=== PATIENT | female | born 1945 | race Caucasian/White ===

== ENCOUNTER 2024-03-02 14:50 | Emergency (ER) | payer MEDICARE, BC, SELFPAY ==
[2024-03-02 14:58] VITALS: BP 121/42; PULSE 55; RESP 16; TEMP 37; O2SAT 100; BMI 20.5
--- NOTE | 2024-03-02 15:45 | ED.GENADULT ---
HPI - General Adult General Time Seen by Provider: 15:45 Date Seen: 03/02/24 Chief complaint: Unspecified Complaint, Adult Stated complaint: abnormal EKG from clinic Time Seen by Provider: 03/02/24 15:12 Source: patient, RN notes reviewed and old records reviewed Mode of arrival: ambulatory Limitations: no limitations History of Present Illness HPI narrative: 79-year-old female who comes in today with 3 weeks of fatigue. Initially presented to the clinic and was felt to have an abnormal EKG, sent to the emergency department for further evaluation. Patient notes lightheadedness when she stands up which is been going on intermittently for the last 3 weeks or so. It is worse in the afternoon, better in the morning. Bone COVID briefly review shows food or palpitations. No nausea, vomiting, diarrhea. Denies the room spinning dizziness but says she feels a little off balance when she is dizzy. Related Data Home Medications ?Medication ?Instructions ?Recorded ?Confirmed hydrochlorothiazide 25 mg tablet 25 mg PO DAILY 03/02/24 03/02/24 latanoprost 0.005 % eye drops 1 drp ophthalmic (eye) QPM 03/02/24 03/02/24 levothyroxine 75 mcg tablet 75 mcg PO QAM 03/02/24 03/02/24 lisinopril 40 mg tablet 40 mg PO DAILY 03/02/24 03/02/24 pramipexole 0.125 mg tablet 0.25 mg PO QPM PRN cramps 03/02/24 03/02/24 rosuvastatin 20 mg tablet 20 mg PO QPM 03/02/24 03/02/24 Allergies Allergy/AdvReac Type Severity Reaction Status Date / Time Sulfa (Sulfonamide Allergy Intermediate Hives Verified 03/02/24 15:04 Antibiotics) [facility] Social History Non-prescribed substance use: denies use Exam Narrative: Exam Narrative: General: Well-developed and well-nourished, no acute distress Head: Atraumatic and normocephalic Eyes: Pupils are equal reactive, extraocular motions intact, conjunctiva clear ENT: External nose and ears are normal, posterior pharynx without erythema or exudate Neck: No midline cervical tenderness, full spontaneous range of motion the neck, trachea midline, no adenopathy Heart: Regular rate and rhythm no murmurs or thrills, occasional extrasystole Lungs: Clear to auscultation bilaterally without wheezes or crackles Abdomen: Soft, nontender, nondistended with active bowel sounds Musculoskeletal: No tenderness, deformity, or edema Neurologic: Awake, alert, and oriented x3, no gross focal neurologic deficits, cranial nerves intact as tested Psych: Mood and affect are appropriate Skin: No rashes Const: Vital Signs, click to edit/add: Vital Signs - 24 hr 03/02/24 14:58 Temperature 98.6 F Pulse Rate [Pulse Oximeter] 55 L Respiratory Rate 16 Blood Pressure [Ri t Upper Arm] 121/42 L Pulse Oximetry 100 Oxygen Delivery Me thod Room Air Course Course ED Course: Patient seen and examined, prior records are reviewed. Patient reports intermittent lightheadedness with standing for the last 3 weeks. Denies chest pain or palpitations with this. On exam here, borderline bradycardia with occasional extrasystoles, lungs are clear, no focal neurologic deficits. Review of medications shows patient is on lisinopril 40 mg daily as well as hydrochlorothiazide 25 mg daily. Labs ordered to evaluate for acute kidney injury or electrolyte disturbance. If this is normal, plan to decrease hydrochlorothiazide and discharge with outpatient follow-up. I independently reviewed EKGs done at the clinic today at 1:26 a.m. p.m.. There 2 EKGs, both of which show normal sinus rhythm with artifact, there is question of a 1 PVC on the EKG done at 13:26:39. EKG in the emergency department independently interpreted by me with normal sinus rhythm rate 56, no acute ST elevations or depressions, 1 PVC is present, normal intervals otherwise, normal axis, QTC 459, IL 154. Reevaluation(s) Time of Reevaluation #1: 17:30 Reevaluation #1: Labs ordered and independently interpreted by me with slightly low potassium at 3.3, normal troponin, normal magnesium. Urinalysis with trace hematuria but no other acute findings. Patient is stable for discharge with outpatient follow-up. Will decrease hydrochlorothiazide due to orthostatic symptoms as well as hypokalemia. Vital Signs Vital signs: Initial Vital Signs Temperature 98.6 F 03/02/24 14:58 Temperature Source Temporal Artery Scan 03/02/24 14:58 Pulse Rate 55 L 03/02/24 14:58 Pulse Rhythm Regular 03/02/24 14:58 Pulse Strength 3+ Normal 03/02/24 14:58 Respiratory Rate 16 03/02/24 14:58 Blood Pressure 121/42 L 03/02/24 14:58 Blood Pressure Mean 68 L 03/02/24 14:58 Blood Pressure Position Sitting 03/02/24 14:58 Pulse Oximetry 100 03/02/24 14:58 Oxygen Delivery Method Room Air 03/02/24 14:58 Vital Signs Temperature 98.6 F 03/02/24 14:58 Pulse Rate 55 L 03/02/24 14:58 Respiratory Rate 16 03/02/24 14:58 Blood Pressure 121/42 L 03/02/24 14:58 Pulse Oximetry 100 03/02/24 14:58 Oxygen Delivery Method Room Air 03/02/24 14:58 Temperature 98.6 F 03/02/24 14:58 Pulse Rate 55 L 03/02/24 14:58 Respiratory Rate 16 03/02/24 14:58 Blood Pressure 121/42 L 03/02/24 14:58 Pulse Oximetry 100 03/02/24 14:58 Oxygen Delivery Method Room Air 03/02/24 14:58 Medical Decision Making Lab Data Labs: Lab Results 03/02/24 03/02/24 Range/Units 16:06 16:45 Sodium 137 (135-149) mmol/L Potassium 3.3 L (3.6-5.1) mmol/L Chloride 100 (96-114) mmol/L Carbon Dioxide 28 (20-32) mmol/L Anion Gap 9 (7-15) mEq/L BUN 27 (7-30) mg/dL Creatinine 0.7 (0.5-1.5) mg/dL Estimated Creat Clear 31.69 Estimated GFR 87 ml/min Glucose 124 H (60-115) mg/dL Calcium 10.2 (8.4-10.6) mg/dL Magnesium 2.3 (1.5-2.6) mg/dL Urine Color Yellow (Yellow) Urine Appearance Clear (Clear) Urine pH 7.0 (5.0-8.5) Ur Specific [place] 1.010 (1.000-1.030) Urine Protein Negative (Negative) Urine Glucose (UA) Negative (Negative) Urine Ketones Negative (Negative) Urine Blood 2+ A (Negative) Urine Nitrite Negative (Negative) Urine Bilirubin Negative (Negative) Urine Urobilinogen 0.2 (0.2-1.0) Ur Leukocyte Esterase 1+ A (Negative) Urine RBC 2-5 A (0-2) Urine WBC 2-5 (0-5) Ur Squamous Epith Cells Few (None-Few) Urine Bacteria Few A (None) POC Troponin I 0.01 (0.01-0.04) ng/ml Discharge Plan Discharge Clinical Impression: Orthostatic lightheadedness, Hypokalemia Patient Disposition: Home w/ Parent or Adult Condition: Stable Instructions: Lightheadedness (ED) Additional Instructions: Decrease hydrochlorothiazide to 12.5 mg (1/2 tablet) daily Follow-up with your primary care provider in 1 week Activity Level: Activity as Tolerated Discharge Diet: Regular Prescriptions: No Action latanoprost 0.005 % drops 1 drp ophthalmic (eye) QPM levothyroxine 75 mcg tablet 75 mcg PO QAM pramipexole 0.125 mg tablet 0.25 mg PO QPM PRN (Reason: cramps) hydrochlorothiazide 25 mg tablet 25 mg PO DAILY lisinopril 40 mg tablet 40 mg PO DAILY rosuvastatin 20 mg tablet 20 mg PO QPM Follow Up/Referrals: Dorothy Arevalo PA-C [Primary Care Provider] - Stand Alone Forms: [employer] Info Instructions
[2024-03-02 17:01] LABS: Troponin, Point-of-Care* 0.01 ng/ml (0.01-0.04)
[2024-03-02 17:03] LABS: Appearance Urine Clear (Clear); Bilirubin Urine Negative (Negative); Blood Urine 2+ (Negative); Color Urine Yellow (Yellow); Glucose Urine Negative (Negative); Ketones Urine Negative (Negative); Leukocyte Esterase Urine 1+ (Negative); Nitrite Urine Negative (Negative); Protein Urine Negative (Negative); Urobilinogen Urine 0.2 (0.2-1.0)
[2024-03-02 17:11] LABS: Bacteria Urine Few; Squamous Epithelial Cell Urine Few (None-Few)
[2024-03-02 17:21] LABS: Chloride* 100 mmol/L (96-114); Potassium* 3.3 mmol/L (3.6-5.1); Sodium* 137 mmol/L (135-149)
[2024-03-02 17:24] LABS: Anion Gap 9 mEq/L (7-15); Blood Urea Nitrogen* 27 mg/dL (7-30); Carbon Dioxide* 28 mmol/L (20-32); Creatinine* 0.7 mg/dL (0.5-1.5); Est. Creatinine Clearance* 31.69; Estimated Glomerular Filt Rate 87 ml/min; Glucose* 124 mg/dL (60-115)
[2024-03-02 17:25] LABS: Calcium* 10.2 mg/dL (8.4-10.6); Magnesium* 2.3 mg/dL (1.5-2.6)
== END 2024-03-02 18:18 | disposition home or self-care (01) ==
PROVIDERS: Emergency Provider Family Medicine; PCP Physician Assistant
DX: E87.6 Hypokalemia (principal); I95.1 Orthostatic hypotension
CPT/HCPCS: 36415; 80048; 81001; 83735; 84484; 87086; 99283; 99284

== ENCOUNTER 2024-09-28 06:36 | Day surgery (SDC) | payer MEDICARE, BC, SELFPAY ==
[2024-09-28] VITALS (26 sets, daily range): BP systolic 104–181; BP diastolic 37–67; PULSE 43–62; RESP 14–18; TEMP 35.6–36.8; O2SAT 94–100; BMI 21.5
--- OUTSIDE RECORDS SUMMARY | 2024-09-28 06:40 | XMS_ITS | Clinical Summary ---
Author Organization [facility] Address [place], [place] [address] Care Team Providers Care Wind Energy Engineer Name Role Phone Hilda Begum Unavailable [phone] Shayna Rosales Primary Care Provider Allergies Active Allergy Reactions Criticality Noted Date Comments Sulfa (Sulfonamide Antibiotics) Hives 03/26 Medications XALATAN 0.005 % EYE DROPS instill 1 drop into both eye(s) by ophthalmic route once daily in the evening 0 007 Active LORATADINE 10 MG TAB take 1 tablet (10 mg) by oral route once daily prn 0 007 Active ZINC 50 MG TAB twice weekly 0 007 Active calcium carbonate-vit D3, 600 mg-400 units, (CALTRATE-600 PLUS VITAMIN D3) tablet Take 1 tablet by mouth 2 times daily. 0 012 Active rosuvastatin (CRESTOR) 20 mg tabletIndications :Mixed hyperlipidemia Take 1 Tablet (20 mg) by mouth at bedtime. 90 Tablet 3 024 Active hydroCHLOROthiazi de 12.5 mg tabletIndications :Hypertension, unspecified type Take 1 Tablet (12.5 mg) by mouth once daily. 90 Tablet 3 024 Active levothyroxine (SYNTHROID) 75 mcg tabletIndications :Hypothyroidism, unspecified type TAKE ONE TABLET BY MOUTH ONE TIME DAILY BEFORE BREAKFAST 90 Tablet 025 Active lisinopriL (PRINIVIL; ZESTRIL) 40 mg tabletIndications :Hypertension, unspecified type TAKE ONE TABLET BY MOUTH ONE TIME DAILY 90 Tablet 1 025 Active pramipexole (MIRAPEX) 0.125 mg tabletIndications :Mixed hyperlipidemia TAKE TWO TABLET BY MOUTH DAILY AT BEDTIME NEEDED for leg cramps. 180 Tablet 025 Active pramipexole (MIRAPEX) 0.125 mg tabletIndications :Mixed hyperlipidemia Take 2 Tablets (0.25 mg) by mouth at bedtime if needed (leg cramps). 180 Tablet 3 024 2024 Discontinued lisinopriL (PRINIVIL; ZESTRIL) 40 mg tabletIndications :Hypertension, unspecified type Take 1 Tablet (40 mg) by mouth once daily. 90 Tablet 3 024 2024 Discontinued levothyroxine (SYNTHROID) 75 mcg tabletIndications :Hypothyroidism, unspecified type TAKE ONE TABLET BY MOUTH ONE TIME DAILY BEFORE BREAKFAST 90 Tablet 2 024 2024 Discontinued pramipexole (MIRAPEX) 0.125 mg tabletIndications :Mixed hyperlipidemia TAKE TWO TABLET BY MOUTH DAILY AT BEDTIME NEEDED for leg cramps. 180 Tablet 025 2024 Discontinued(R eorder (E-cancel not sent)) Active Problems Problem Noted Date Diagnosed Date Controlled type 2 diabetes m ellitus without complication, without long-term current use of insulin 08/16/2019 History of colon polyps 09/26/2015 Overview (09/26/2015): Colonoscopy 09/2015 diverticulosis repeat in 5 years ACP (advance care planning) 07/22/2014 Overview (07/22/2014): Has completed and daughter has information Alyson Fuchs M.D. 07/22/2014 8:27 AM Spongiotic dermatitis 02/07/2014 Restless leg syndrome 06/29/2013 Atrophic vaginitis 06/29/2013 Hiatal hernia 05/23/2011 Bradycardia 07/27/2008 Sensorineural hearing loss, bilateral 06/17/2007 Anxiety state, unspecified 04/15/2007 Unspecified hypothyroidism 04/15/2007 Unspecified essential hypertension 04/15/2007 Disorder of bone and cartilage, unspecified 03/26 Overview (07/22/2014): Stable in 2010. Completed fosamax. Consider repeat dexa 2014. Alyson Fuchs M.D. 07/22/2014 8:29 AM Mixed hyperlipidemia 04/15/2007 Hematuria 04/15/2007 Overview (04/15/2007): no etiology found on urologic workup in 2005 Resolved Problems Problem Noted Date Diagnosed Date Resolved Date Impaired fasting glucose 04/15/200704/2024 Encounters Date Type Department Care Team Description 09/20/2024 9:50 AM SEWING LINE BALER Office Visit [facility] [address] [place] [address] Shayna Rosales PA Preoperative Exam (R hip); Ear Problem (Having a hard time hearing) 09/20/2024 Travel 09/09/[address] [address] Shayna Rosales PA Refill Request (Levothyroxine, Lisinopril, Pramipexole) 08/30/[address] [address] Shayna Rosales PA Follow Up 08/27/[address] [address] Shayna Rosales PA Results 08/27/[address] [address] Shayna Rosales PA Referral (Hip replacement. ) 08/24/2024 10:15 AM SEWING LINE BALER Ancillary Procedure [address] [address] 08/24/2024 9:30 AM SEWING LINE BALER Office Visit [facility] [address] [place] [address] Shayna Rosales PA Preoperative Exam (R hip replacement); URI (Cough and chills since xmas shiloh.) 08/24/2024 Travel from Last 3 Months Immunizations Name Administration Dates Next Due COVID-19 vaccine ([employer] 30mcg/0.3mL) P F, MDV 11/07/2020,10/17/2020 Influenza RIV4 (Age 18+ Years) PRESERV FREE 12/2019,05/31/2019 Influenza Virus, Unspecified 06/08/2018 Influenza, High-dose Inactivated 05/29/2017,04/27 Influenza, High-dose Quadrivalent Inactivated ,05/30/2021 Influenza, IIV3 (Age >=3 years) 05/29/2013,04/25 Influenza, IIV4 05/26/2017 Pneumococcal Poly,23-Valent (Pneumovax) 05/22/20 11 Pneumococcal conj 13-Valent (Prevnar 13) 015 Tdap 02/05/2019,04/11/2006 Zoster (Shingrix-RZV, recombinant) 06/23/2023, Zoster (Zostavax-ZVL, live) 07/22/2012, 2 Family History Medical History Relation Name Comments Diabetes Father Other Father emphysema, smok er Other Mother suddenly, smoker Osteoporosis Sister 2 Other Son 2 colitis Cancer-breast No Family History Relation Name Status Comments Daughter 1 Alive Daughter 2 Alive Father (Age 60) COPD Mother (Age 51) AAA Sister 1 Alive Sister 2 Son 1 Alive Son 2 Social History Tobacco Use Types Packs/Day Years Used Date Smoking Tobacco: Never Smokeless Tobacco: Never Tobacco Cessation:Counseling Given: Yes Alcohol Use Standard Drinks/Week Comments Not Currently 0 (1 standard drink = 0.6 oz pur e alcohol) PHQ-2 Answer Date Recorded PHQ-2 TOTAL SCORE 0 10/03/2023 Social Connections Answer Date Recorded Do you often feel lonely or isolated from those around you? 0 10/03/2023 Financial Resource Strain Answer Date R ecorded Difficulty of Paying Living Expenses 3 10/03/2023 Difficulty of Paying Living Expenses Not on file 10/03/2023 Food Insecurity Answer Date Recorded Do you worry your food will run out before you are able to buy more? 1 10/03/2023 Transportation Needs Answer Date Record ed Does lack of transportation keep you from medica l appointments? 1 10/03/2023 Does lack of transportation keep you from work, meetings or getting things that you need? 1 10/03/2023 Housing Stability Answer Date Recorded What is your housing situation today? 1 10/03/2023 Utilities Answer Date Recorded Do you have trouble paying f or utilities (for example, heat, electricity, water, phone)? 1 10/03/2023 Comments No Sex and Gender Information Value Date Recorded Sex Assigned at Not on file Legal Sex Female 6:10 AM SEWING LINE BALER Gender Identity Not on file Sexual Orientation Not on file Occupation Industry Job Start Date Job End Date Not on file Not on file Not on file Not on file Obstetrics History Para Term AB IAB SAB Ectopic Multiple Livin g Live Births 3 3 Date Outcome GA Total Labor Labor/2nd/3rd Weight Sex Type Anes PTL Loreta A1 A5 Name Clin Para Para Para Last Filed Vital Signs Vital Sign Reading Time Taken Comments Blood Pressure 138/68 09/20/2024 10:41 AM SEWING LINE BALER Pulse 59 09/20/2024 10:07 AM SEWING LINE BALER Temperature 36.9 C (98.5 F) 08/24/2024 9:37 AM SEWING LINE BALER Respiratory Rate - - Oxygen Saturation 98% 09/20/2024 10:07 AM SEWING LINE BALER Inhaled Oxygen Concentration - - Weight 49.9 kg (110 lb) 09/20/2024 10:07 AM SEWING LINE BALER Height 149.9 cm (4' 11) 03/15/2024 2:08 PM CDT Body Mass Index 22.22 03/15/2024 2:08 PM CDT Plan of Treatment Health Maintenance Due Date Last Done Comments RSV vaccine for adults or (1 - 1-dose 75+ series) 2018 Influenza for age 65+ 04/25/2024 07/01/2022 , 05/30/2021, 05/29/2020, Additional history exists Depression screening for age 12+ 10/03/2024 10/03/2023, 09/27/2022, 09/04/2021, Additional history exists Medicare Wellness for age 65+ 10/03/2024, 09/27/2022, 09/03/2021, Additional history exists BMI (ht and wt on same day) for age 18+ 03/15/2025 03/15/2024, 10/03/2023, 09/27/2022, Additional history exists Tetanus booster 02/05/2029 02/05/2019, 04/11/2006 Pneumococcal series for age 50+ Completed 5, 05/22/2011 DEXA/DXA scan for age 65+ Completed 2018, 07/27/2015, 06/01/2010, Additional history exists Tdap Completed 02/05/2019, 04/11/2006 Zoster (shingles) series for age 50+ Completed 06/23/2023, 04/09/2023, 07/22/2012, Additional history exists COVID-19 vaccine series Completed 05/31/20 24, 05/26/2023, 06/07/2022, Additional history exists Procedures Procedure Name Priority Date/Time Associated Diagnosis Comments CBC WITH AUTO DIFFERENTIAL Routine 09/20/2024 10:48 AM SEWING LINE BALER Hypertension, unspecified type BASIC METABOLIC PANEL Routine 09/20/2024 10:48 AM SEWING LINE BALER Hypertension, unspecified type NV READING EKG - NO CHARGE, COMP ONLY Routine 08/26/2024 1:25 PM SEWING LINE BALER Preop general physical exam EKG 12 LEAD Routine 08/26/2024 1:25 PM SEWING LINE BALER Preop general physical exam XR CHEST 2 VIEWS PA AND LATERAL Routine 08/24/2024 10:16 AM SEWING LINE BALER Cough, unspecified type CBC WITH AUTO DIFFERENTIAL Routine 08/24/2024 10:06 AM SEWING LINE BALER Hypertension, unspecified type Controlled type 2 diabetes mellitus without complication, without long-term current use of insulin (HC) BASIC METABOLIC PANEL Routine 08/24/2024 10:06 AM SEWING LINE BALER Hypertension, unspecified type Controlled type 2 diabetes mellitus without complication, without long-term current use of insulin (HC) XR DXA BONE DENSITY 2 SITES AXIAL Routine 08/27/2018 11:16 AM SEWING LINE BALER Menopausal and perimenopausal disorder Osteopenia, unspecified location from Last 3 Months or Most Recently Relevant to Health Maintenance Results * (ABNORMAL) CBC AND DIFFERENTIAL (09/20/2024 10:48 AM SEWING LINE BALER) Only the most recent of2 resultswithin the time period is included. WHITE BLOOD CELL COUNT 9.3 3.8 - 10.8 Thousand/u L [facility] RED BLOOD CELL COUNT 3.30(L) 3.80 - 5.10 Million/uL [facility] HEMOGLOBIN 11.3(L) 11.7 - 15.5 g/dL [facility] HEMATOCRIT 32.9(L) 35.0 - 45.0 % [facility] MCV 99.7 80.0 - 100.0 fL [facility] MCH 34.2(H) 27.0 - 33.0 pg [facility] MCHC 34.3 32.0 - 36.0 g/dL [facility] Comment: For adults, a slight decrease in the calculated MCHC value (in the range of 30 to 32 g/dL) is most likely not clinically significant; however, it should be interpreted with caution in correlation with other red cell parameters and the patient's clinical condition. RDW 12.7 11.0 - 15.0 % [facility] PLATELET COUNT 204 140 - 400 Thousand/u L [facility] MPV 10.5 7.5 - 12.5 fL [facility] ABSOLUTE NEUTROPHILS 6,054 1,500 - 7,800 cells/uL [facility] ABSOLUTE LYMPHOCYTES 2,381 850 - 3,900 cells/uL [facility] ABSOLUTE MONOCYTES 781 200 - 950 cells/uL [facility] ABSOLUTE EOSINOPHILS 56 15 - 500 cells/uL [facility] ABSOLUTE BASOPHILS 28 0 - 200 cells/uL [facility] NEUTROPHILS 65.1 % [facility] LYMPHOCYTES 25.6 % [facility] MONOCYTES 8.4 % [facility] EOSINOPHILS 0.6 % [facility] BASOPHILS 0.3 % [facility] Blood BLOOD SPECIMEN / Unknown 09/20/2024 10:48 AM SEWING LINE BALER 09/20/2024 10:48 AM SEWING LINE BALER Shayna BERKOWITZ HEMATOLOGY Final R esult [facility] [address] [place] [address], [place] [phone] [facility] [address] [place] [address] * BASIC METABOLIC PANEL (09/20/2024 10:48 AM SEWING LINE BALER) Only the most recent of2 resultswithin the time period is included. [facility] GLUCOSE 73 65 - 99 mg/dL [facility] Comment: Fasting reference interval UREA NITROGEN (BUN) 23 7 - 25 mg/dL [facility] CREATININE 0.75 0.60 - 0.95 mg/dL [facility] EGFR 80 > OR = 60 mL/min/1. 73m2 [facility] BUN/CREATININE RATIO SEE NOTE: 6 - 22 (calc) [facility] Comment: Not Reported: BUN and Creatinine are within reference range. SODIUM 139 135 - 146 mmol/L [facility] POTASSIUM 4.0 3.5 - 5.3 mmol/L [facility] CHLORIDE 100 98 - 110 mmol/L [facility] CARBON DIOXIDE 30 20 - 32 mmol/L [facility] ELECTROLYTE BALANCE 9 7 - 17 mmol/L (calc) [facility] CALCIUM 9.9 8.6 - 10.4 mg/dL [facility] Blood BLOOD SPECIMEN / Unknown 09/20/2024 10:48 AM SEWING LINE BALER 09/20/2024 10:48 AM SEWING LINE BALER us Shayna BERKOWITZ CHEMISTRY Final R esult [facility] [address] [place] [address], [place] [phone] [facility] [address] [place] [address] * EKG 12 LEAD (08/26/2024 1:25 PM SEWING LINE BALER) us Shayna BERKOWITZ EKG ORD Edited Result - Final * NV READING EKG - NO CHARGE, COMP ONLY (08/26/2024 1:25 PM SEWING LINE BALER) us Shayna BERKOWITZ PB - PROVIDER READINGS Final Result * XR CHEST 2 VIEWS PA AND LATERAL (08/24/2024 10:16 AM SEWING LINE BALER) Anatomical Region Laterality Modality CHEST, THORAX, Lung, HEART Compu aleida Radiography 08/24/2024 3:05 PM SEWING LINE BALER Impressions 08/24/2024 3:05 PM SEWING LINE BALER No acute findings. Dictated by Alcon Gaston MD @ 08/24/2024 3:05:37 PM (Electronically Signed) Narrative 08/24/2024 3:05 PM SEWING LINE BALER For Patients: As a result of the Cures Act, medical imaging exams and procedure reports are released immediately into your electronic medical record. You may view this report before your referring provider. If you have questions, please contact your health care provider. INDICATION: Cough TECHNIQUE: Chest 2 views COMPARISON: None FINDINGS: Cardiac silhouette is mildly prominent. No infiltrate or edema. No effusion or pneumothorax. No fracture. Procedure Note Alcon Gaston MD - 08/24/2024 For Patients: As a result of the Cures Act, medical imagingexams and procedure reports are released immediately into your electronicmedical record. You may view this report before your referring provider.If you have questions, please contact your health care provider. INDICATION: Cough TECHNIQUE: Chest 2 views COMPARISON: None FINDINGS: Cardiac silhouette is mildly prominent. No infiltrate or edema. Noeffusion or pneumothorax. No fracture. IMPRESSION: No acute findings. Dictated by Alcon Gaston MD @ 08/24/2024 3:05:37 PM (Electronically Signed) us Shayna BERKOWITZ GENERAL IMAGING Final R esult * (ABNORMAL) XR DXA BONE DENSITY 2 SITES AXIAL (08/27/2018 11:16 AM SEWING LINE BALER) Anatomical Region Laterality Modality Spine, HIPS, HIPL, HIPR Other Narrative 09/07/2018 3:36 PM SEWING LINE BALER Please see scanned document for results of this study. us Shayna BERKOWITZ DEXA Final R esult from Last 3 Months or Most Recently Relevant to Health Maintenance Insurance BLUE CROSS UTE BLUE MR PB ONLY Advance Directives Documents on File Type Date Recorded Patient Media Strategist Expl anation Power of News Intern 03/29/1998 [employer]; [employer], 03/29/1998 Healthcare Directive 03/29/1998 [facility], 03/29/1998 Care Teams Wind Energy Engineer Relationship Specialty Start Date End Date Shayna Rosales PA [address] [place] [address] PCP - General Family Practice 04/20/15 Hilda Begum AuD Audiology 05/06/07
[2024-09-28] MEDS: CELECOXIB 200 MG CAPSULE PO (07:15)
[2024-09-28] MEDS: ACETAMINOPHEN 500 MG TABLET 1000 MG PO ×3 (07:15→19:30)
[2024-09-28] MEDS: LACTATED RINGERS 1000 ML 1,000 ML 100 ML IV ×2 (07:15→09:21)
[2024-09-28] MEDS: OXYCODONE (CR) 10 MG TAB.ER.12H PO (07:15)
[2024-09-28] MEDS: SODIUM CHLORIDE 0.9 % (FLUSH) 10 ML SYRINGE IVF (07:42)
[2024-09-28] MEDS: fentaNYL 100 MCG/2 ML inj IVP (08:30)
[2024-09-28] MEDS: MIDAZOLAM HCL 1 MG/ML inj IVP (08:30)
--- NOTE | 2024-09-28 08:39 | P.ANES_ITS ---
Anesthesia Charges Start Date/Time Anesthesia Start Date: 09/28/24 Anesthesia Start Time: 09:21 Stop Date/Time Anesthesia Stop Date: 09/28/24 Anesthesia Stop Time: 11:48 Summary Extremes of Age - Over 70 or under 1: PRINT FINISHING WORKER Coding CPT Codes CPT Codes: ANESTH HIP ARTHROPLASTY - 57707 ([id number]) P2 - PATIENT W/MILD SYST DISEASE, QK - CONVENTIONS RESERVATIONIST 2-4 CNCRNT ANES PROC, QX - PRINT FINISHING WORKER SVC W/ MD MED DIRECTION Additional Codes: Summary - Extremes of Age - Over 70 or under 1: PRINT FINISHING WORKER ([id number])
--- NOTE | 2024-09-28 08:39 | W.ANESCHARGE ---
Anesthesia Charges Start Date/Time Anesthesia Start Date: 09/28/24 Anesthesia Start Time: 09:21 Stop Date/Time Anesthesia Stop Date: 09/28/24 Anesthesia Stop Time: 11:48 Summary Extremes of Age - Over 70 or under 1: STUDENT SERVICES VICE PRESIDENT Coding CPT Codes CPT Codes: ANESTH HIP ARTHROPLASTY - 42167 ([id number]) P2 - PATIENT W/MILD SYST DISEASE, QK - VETERINARY TECHNICIAN 2-4 CNCRNT ANES PROC, QX - STUDENT SERVICES VICE PRESIDENT SVC W/ MD MED DIRECTION Additional Codes: Summary - Extremes of Age - Over 70 or under 1: STUDENT SERVICES VICE PRESIDENT ([id number])
--- NOTE | 2024-09-28 08:45 | SUR.PREOP ---
TIME?OUT:?0830 PT/savanna collado RN/mary keating MDA?VERIFICATION?OF?SURGICAL?SITE,?PROCEDURE,?AND?CONSENT OBTAINED?PRIOR?TO?INVASIVE?PROCEDURE.
--- NOTE | 2024-09-28 09:29 | CRLHL7_ITS ---
For Patients: As a result of the Cures Act, medical imaging exams and procedure reports are released immediately into your electronic medical record. You may view this report before your referring provider. If you have questions, please contact your health care provider. Indication: Hip replacement surgery Technique: AP hip fluoroscopic images. Fluoroscopy time 50 seconds. Findings/Impression: Hardware from a right total hip arthroplasty is in satisfactory position. Dictated by Alcon Gaston MD @ 09/28/2024 11:10:25 AM (Electronically Signed)
[2024-09-28] MEDS: CEFAZOLIN 2 GM INJ IVP (09:30)
[2024-09-28] MEDS: TRANEXAMIC ACID 100 MG/ML INJ 1000 MG IV (09:35)
--- NOTE | 2024-09-28 10:09 | P.NB_ITS ---
Nerve Block Nerve Block Time Seen by Provider: 08:33 Date Seen: 09/28/24 Type of block requested by surgeon for post-operative analgesia: MATEO/LFCN Side: right Time out performed: Yes Verification of patient name: Yes Verification of date of : Yes Site marking: site marked Name of person performing procedure: Juan R Continuous monitoring Was continuous monitoring of O2 sat, B/P, court recording monitor, recorded every 15 minutes?: Yes Procedure Checklist: sterile prep, needles and gloves Ultrasound guided. Images saved: Yes Medications given in 5ml increments after negative aspiration: Ropivicaine %: 0.5 mL: 30 Needle gauge: 20 Precedex (mcg): 25 Patient tolerated procedure well: Yes Additional comments: Needle noted below psoas tendon needle noted adjacent to LFCN Block Charges Block Charge (with Pro Fee): Other Periph Nerve Block Use of Ultrasound Machine for Block: Yes- US Guidance/pain block
--- NOTE | 2024-09-28 10:31 | SUR.OPER ---
PATIENT QUESTIONS ANSWERED SATISFACTORILY PREOPERATIVELY. PATIENT BROUGHT TO OR #2 PER CART AFTER ADMINISTRATION OF A BLOCK. Patient positioned supine on OR #2 bed. The perioperative team supported arms bilaterally on arm boards. Final approval of positioning by surgeon.
--- NOTE | 2024-09-28 10:57 | CRLHL7_ITS ---
For Patients: As a result of the Cures Act, medical imaging exams and procedure reports are released immediately into your electronic medical record. You may view this report before your referring provider. If you have questions, please contact your health care provider. Indication: Postop DOUG Technique: AP pelvis and lateral view right hip Findings/Impression: Hardware from a right total hip arthroplasty is in satisfactory position. Bone alignment is normal. No sign of acute fracture. Postop changes are within normal limits. Dictated by Alcon Gaston MD @ 09/28/2024 12:53:29 PM (Electronically Signed)
--- NOTE | 2024-09-28 11:01 | PM.ORPRC ---
Procedure Note Date of procedure: 09/28/24 Procedure: PREOPERATIVE DIAGNOSIS: Right hip osteoarthritis POSTOPERATIVE DIAGNOSIS: Right hip osteoarthritis NAME OF OPERATION: Right total hip arthroplasty SURGEON: Mariano Mahajan MD DEPOSIT REFUND CLERK: Tesha Chong PA-C, KANDICE Luther IMPLANTS: 1. [employer] [place] # 48 sector ingrowth cup 2. 32 x 48 +4 neutral polyethylene 3. Actis #4 standard collared ingrowth stem 4. 32 + 1 cobalt chrome femoral head ANESTHESIA: Spinal ESTIMATED BLOOD LOSS: 450 cc COMPLICATIONS: None SPECIMENS: None DRAINS: None PREOPERATIVE ANTIBIOTICS: Ancef 1 g INDICATIONS: The patient is a 79-year-old with a longstanding history of severe, unrelenting right hip pain secondary to end-stage right hip osteoarthritis. Despite appropriate nonoperative management, including activity modification, use of an assist device, anti-inflammatories, [id number] pain medication, physical therapy and injections, they continue to have pain and disability. Operative intervention was offered. The risks, benefits and expected outcomes were discussed in detail. These included but were not limited to: Infection, bleeding, injury to blood vessel or nerve, venous thromboembolism. All questions were answered to their satisfaction. Use of an assistant portfolio manager was necessary throughout the case for patient positioning and safety, soft tissue retraction and closure. PROCEDURE: The patient was placed supine on the [place] table. General anesthesia was administered. The assistant portfolio manager made sure the patient was properly positioned. The right hip was prepped and draped in the usual sterile fashion. The image intensifier was brought in for a perfect AP pelvis and a perfect double tear drop AP view of each hip which were used for intraoperative templating with our fluoroscopic guide. An oblique incision was made 3 cm distal and 3 cm lateral to the anterior superior iliac spine. The assistant portfolio manager retracted the soft tissues to protect them. Subcutaneous dissection was taken with electrocautery to the superficial fascia. The fascia was divided in line with the incision. Blunt dissection was carried medially to the tensor fascia veronica and sartorius interval. Deep dissection was carried with electrocautery. The circumflex vessels were cauterized and divided. The capsule was exposed and then divided in a T-fashion, tagged with #1 Ethibond sutures. Retractors were placed in the joint, held by the assistant portfolio manager. The corkscrew was placed in the femoral head. The neck cut was made in the subcapital region. We made a second neck cut more distal. The napkin ring of bone was removed. The femoral head was removed intact. Acetabular retractors were placed, held by the assistant portfolio manager. The labrum was sharply debrided. The capsule was released. The 43 mm reamer was used to the true medial wall. We then enlarged in 2 mm increments using the image intensifier for our reamer placement. We impacted the cup which had excellent purchase. We placed the polyethylene. Attention was then turned to the proximal femur. The limb was placed in 140 degrees of external rotation, maximum extension and adduction. A significant amount of time was spent releasing the capsule to allow us to deliver the femur into the wound and complete the femoral side safely. Retractors were held by the assistant portfolio manager throughout the femoral preparation. The box sorter and canal finder were used. Broaches were used to a stable size. The calcar reamer was used. Femoral bone quality was excellent. Therefore, we elected to go with an uncemented stem. Trial components were placed. The hip was reduced and was found to be stable with appropriate soft tissue tension. Length and offset had been nicely restored using the image intensifier and our fluoroscopic guide. Trial components were removed. The stem was impacted. We placed the femoral head. Again, the hip was reduced and was found to be stable with appropriate soft tissue tension. Length and offset had been nicely restored. The assistant portfolio manager did a three minute dilute Betadine solution soak. The assistant portfolio manager irrigated the wound with 3 liters of normal saline via pulse lavage. The assistant portfolio manager repaired the anterior capsule with a #1 Vicryl and our previously placed Ethibond sutures. The assistant portfolio manager closed the fascia over the tensor fascia veronica with a #1 PDO Stratafix, subcutaneous tissues with 2-0 Vicryl, skin with a running 3-0 Stratafix and glue. A dry dressing was applied by the assistant portfolio manager. Sponge and needle counts were correct x 2. The patient tolerated the procedure well; there were no apparent complications. They were awakened and extubated in the operating room, sent to the Post-Anesthesia Care Unit in satisfactory condition. PLAN: 1. The patient will be mobilized with physical therapy, weight-bearing as tolerates 2. Xarelto x 5 days then aspirin x 30 days will be used for DVT prophylaxis 3. The patient will be discharged once medically appropriate
--- NOTE | 2024-09-28 11:29 | P.ANES_ITS ---
Anesthesia Charges Start Date/Time Anesthesia Start Date: 09/28/24 Anesthesia Start Time: 09:21 Stop Date/Time Anesthesia Stop Date: 09/28/24 Anesthesia Stop Time: 11:48 Summary Extremes of Age - Over 70 or under 1: MDA Coding CPT Codes CPT Codes: ANESTH HIP ARTHROPLASTY - 11222 ([id number]) P2 - PATIENT W/MILD SYST DISEASE, QK - CHAIN TENDER 2-4 CNCRNT ANES PROC, QX - ANSWERER SVC W/ MD MED DIRECTION Additional Codes: Summary - Extremes of Age - Over 70 or under 1: MDA ([id number])
--- NOTE | 2024-09-28 11:29 | W.ANESCHARGE ---
Anesthesia Charges Start Date/Time Anesthesia Start Date: 09/28/24 Anesthesia Start Time: 09:21 Stop Date/Time Anesthesia Stop Date: 09/28/24 Anesthesia Stop Time: 11:48 Summary Extremes of Age - Over 70 or under 1: MDA Coding CPT Codes CPT Codes: ANESTH HIP ARTHROPLASTY - 94281 ([id number]) P2 - PATIENT W/MILD SYST DISEASE, QK - WORD PROCESSOR 2-4 CNCRNT ANES PROC, QX - ER MEDICAL TECHNICIAN SVC W/ MD MED DIRECTION Additional Codes: Summary - Extremes of Age - Over 70 or under 1: MDA ([id number])
[2024-09-28] MEDS: LACTATED RINGERS 1000 ML 1,000 ML 75 ML IV (13:10)
--- NOTE | 2024-09-28 15:34 | P.IMCN_ITS ---
Date of Consult Patient: Luiz Patient Consult date: 09/28/24 Requesting Physician: Orthopedics Primary Care Provider: Shayna Rosales PA-C Consult Narrative Reason for consult: HTN Narrative: Tabitha Beavers is a 79 year old female with a history of diet-controlled type 2 diabetes mellitus, hypertension, hyperlipidemia, and hypothyroidism who underwent elective right total hip arthroplasty by Dr. Mahajan today for severe osteoarthritis. She is doing well postoperatively and denies any dizziness or lightheadedness, chest pain or shortness of breath. Review of Systems Status of ROS: Reports: 6 or more systems reviewed and unremarkable except as noted in History and below [facility] Medical History (Updated 09/28/24 @ 17:51 by Wendy Sandoval MD) Hematuria ?R31.9 - Hematuria, unspecified (ICD-10) Spongiotic dermatitis (02/07/14) ?L30.8 - Other specified dermatitis (ICD-10) Sensorineural hearing loss, bilateral (06/17/07) ?H90.3 - Sensorineural hearing loss, bilateral (ICD-10) Atrophic vaginitis (06/29/13) ?N95.2 - Postmenopausal atrophic vaginitis (ICD-10) Unspecified essential hypertension ?I10 - Essential (primary) hypertension (ICD-10) Bradycardia ?R00.1 - Bradycardia, unspecified (ICD-10) Hypothyroidism ?E03.9 - Hypothyroidism, unspecified (ICD-10) Mixed hyperlipidemia ?E78.2 - Mixed hyperlipidemia (ICD-10) Type 2 diabetes mellitus ?E11.9 - Type 2 diabetes mellitus without complications (ICD-10) Colon polyps ?K63.5 - Polyp of colon (ICD-10) Hiatal hernia ?K44.9 - Diaphragmatic hernia without obstruction or gangrene (ICD-10) Anxiety ?F41.9 - Anxiety disorder, unspecified (ICD-10) Restless legs syndrome (RLS) ?G25.81 - Restless legs syndrome (ICD-10) Surgical History (Updated 09/28/24 @ 17:48 by Wendy Sandoval MD) S/P total right hip arthroplasty ?Z96.641 - Presence of right artificial hip joint (ICD-10) History of rectal surgery ?Z98.890 - Other specified postprocedural states (ICD-10) History of tubal ligation ?Z98.51 - Tubal ligation status (ICD-10) Social History (Updated 09/28/24 @ 15:41 by Wendy Sandoval MD) Narrative: . Lives independently. Denies tobacco, alcohol use. What is your current living situation?: I presently have a place to live In the past 12 months, utilities in danger of being shut off: no In past 12 months, lack of transportation kept you from medical appts, meetings, work, or getting things needed for daily living: no In the past 12 mos, have been you worried that your food would run out before you had money to buy more?: never true In the past 12 mos, the food you bought just didn't last and you didn't have money to buy more?: never true Smoking Status: Never smoker Do you use any of these nicotine containing products: None How often do you have a drink containing alcohol: monthly or less AUDIT-C Alcohol total score: 1 Non-prescribed substance use: denies use Caffeine: Yes How often does anyone, including family, friends and others, physically hurt you : never How often does anyone, including family, friends and others, insult or talk down to you: never How often does anyone, including family, friends and others, threaten you with harm: never How often does anyone, including family, friends and others, scream or curse at you: never Meds Home Medications and Allergies Home Medications ?Medication ?Instructions ?Recorded ?Confirmed ?Type hydrochlorothiazide 25 mg tablet 12.5 mg PO DAILY 03/02/24 09/28/24 History latanoprost 0.005 % eye drops 1 drp ophthalmic (eye) QPM 03/02/24 09/28/24 History levothyroxine 75 mcg tablet 75 mcg PO QAM 03/02/24 09/28/24 History lisinopril 40 mg tablet 40 mg PO DAILY 03/02/24 09/28/24 History pramipexole 0.125 mg tablet 0.25 mg PO QPM PRN cramps 03/02/24 09/28/24 History rosuvastatin 20 mg tablet 20 mg PO QPM 03/02/24 09/28/24 History Allergies Allergy/AdvReac Type Severity Reaction Status Date / Time Sulfa (Sulfonamide Allergy Intermediate Hives Verified 09/28/24 07:26 Antibiotics) Exam Narrative: Exam Narrative: General: No acute distress. Awake alert oriented x3. HEENT: Normocephalic atraumatic, pupils equally round and reactive to light and accommodation. Oropharynx clear. Mucous membranes are moist. No cervical lymphadenopathy, thyromegaly or carotid bruits. No JVD. Cardiovascular: Regular rate and rhythm. No murmurs, gallops, or rubs. Chest: No increased work of breathing. Clear to auscultation bilaterally. No crackles or wheezes. Abdomen: Bowel sounds present. Soft, nondistended, nontender. No hepatosplenomegaly or masses. Extremities: Right hip bandage is clean, dry, and intact. No edema, no cyanosis or clubbing. Skin: No jaundice, no pallor, no rashes on visible skin. Const: Vital Signs, click to edit/add: Vital Signs - 24 hr 09/28/24 07:32 09/28/24 08:30 09/28/24 08:35 Temperature 98 F Pulse Rate 60 53 L 43 L Respiratory Rate 16 16 16 Blood Pressure 181/67 H 151/51 H 135/51 L Pulse Oximetry 94 100 100 Oxygen Delivery Me thod Room Air Nasal Cannula Nasal Cannula Oxygen Flow Rate 3 3 09/28/24 11:43 09/28/24 11:50 09/28/24 11:55 Temperature 97.2 F L Pulse Rate 58 L 55 L 52 L Respiratory Rate 16 14 14 Blood Pressure 116/55 L 121/57 L 132/56 L Pulse Oximetry 96 95 96 Oxygen Delivery Me thod Room Air Room Air Room Air Oxygen Flow Rate 09/28/24 12:00 09/28/24 12:05 09/28/24 12:10 Temperature 97.3 F L Pulse Rate 53 L 56 L 53 L Respiratory Rate 18 16 14 Blood Pressure 130/54 L 116/51 L 128/55 L Pulse Oximetry 97 95 97 Oxygen Delivery Me thod Room Air Room Air Room Air Oxygen Flow Rate 09/28/24 12:15 09/28/24 12:18 09/28/24 12:27 Temperature 97.3 F L Pulse Rate 53 L 51 L 49 L Respiratory Rate 14 14 16 Blood Pressure 127/55 L 124/51 L 110/41 L Pulse Oximetry 97 96 95 Oxygen Delivery Me thod Room Air Room Air Room Air Oxygen Flow Rate 09/28/24 12:30 09/28/24 12:30 02/04/25 12:45 Temperature 96.0 F L Pulse Rate 46 L 46 L Respiratory Rate 16 16 16 Blood Pressure 119/46 L 119/47 L Pulse Oximetry 96 96 98 Oxygen Delivery Me thod Room Air Room Air Room Air Oxygen Flow Rate 09/28/24 13:00 09/28/24 13:15 09/28/24 13:30 Temperature 96.3 F L Pulse Rate 45 L 47 L 46 L Respiratory Rate 16 16 16 Blood Pressure 118/47 L 118/47 L 105/44 L Pulse Oximetry 97 96 95 Oxygen Delivery Me thod Room Air Room Air Room Air Oxygen Flow Rate 09/28/24 14:00 09/28/24 14:30 Temperature 96.7 F L Pulse Rate 47 L 45 L Respiratory Rate 16 16 Blood Pressure 108/47 L 107/61 Pulse Oximetry 96 96 Oxygen Delivery Me thod Room Air Room Air Oxygen Flow Rate Assessment and Plan Assessment and plan (1) S/P total right hip arthroplasty: Problem comment: - 09/28/24 Dr. Mahajan - routine post op cares - VTE prophylaxis with 5 days low dose Xarelto, then bid low dose aspirin Status: Acute (2) Osteoarthritis of right hip: Status: Chronic (3) Bradycardia: Problem comment: - Asymptomatic. Monitor. Status: Chronic (4) Type 2 diabetes mellitus: Problem comment: Diet controlled - 04/14/2024 hemoglobin A1c was 5.7% Status: Chronic (5) Mixed hyperlipidemia: Problem comment: Continue rosuvastatin Status: Chronic (6) Unspecified essential hypertension: Problem comment: Blood pressure is borderline low postoperatively, will hold lisinopril and hydrochlorothiazide, may restart these upon discharge Status: Chronic (7) Hypothyroidism: Problem comment: Continue levothyroxine Status: Chronic
[2024-09-28] MEDS: CEFAZOLIN 1 GM in 0.9 % SODIUM CHLORIDE Mini-bag 100 ML IVPB (17:04)
[2024-09-28] MEDS: SENNOSIDES 1 TAB TABLET 2 TAB PO (20:32)
[2024-09-28] MEDS: ROSUVASTATIN CALCIUM 10 MG TABLET 20 MG PO (20:33)
[2024-09-28] MEDS: LATANOPROST 0.005% OPHTH 1 DROP EYE-BOTH (20:37)
[2024-09-29] MEDS: CEFAZOLIN 1 GM in 0.9 % SODIUM CHLORIDE Mini-bag 100 ML IVPB (01:04)
[2024-09-29] MEDS: ACETAMINOPHEN 500 MG TABLET 1000 MG PO ×2 (01:42→08:11)
[2024-09-29 04:00] VITALS: BP 105/41; PULSE 65; RESP 16; TEMP 37.1; O2SAT 97
[2024-09-29] MEDS: OXYCODONE 5 MG TABLET PO (04:15)
[2024-09-29] MEDS: LEVOTHYROXINE 75 MCG TABLET PO (05:50)
--- NOTE | 2024-09-29 06:13 | PC.NURSE ---
End of shift note [id number]: Pt A&Ox 4 and able to make needs known. She is transferring/ambulating in room and hallway with SBA using walker and gait belt. Dressing to R hip noted to be C/D/I with CMS to RLE intact. Pt wore bilateral plexi pulses most of shift though requested to have removed this AM. Pt tolerating regular diet and denies nausea when asked with no vomiting noted. No c/o CP. Pain to R hip/R leg 2-12/02 per pt report and controlled with scheduled and PRN pain medications, ice, rest and repositioning. Pt's DBP noted to be in the 40s-50s though this is pt's baseline and she has been asymptomatic. Pt able to perform IS independently. Bed alarm on, call light within reach.
[2024-09-29 06:35] LABS: Basophils Percent Auto 0.1 % (0.0-3.0); Hematocrit 23.9 % (33.0-51.0); Immature Granulocytes Pct Auto 0.3 %; Lymphocytes Percent Auto 8.4 % (20-44); Mean Corpuscular HGB Conc 33 gm/dL (32-36); Mean Corpuscular Hemoglobin 34 pg (26-34); Mean Corpuscular Volume 104 fL (80-100); Monocytes Percent Auto 7.8 % (0.0-11.0); Neutrophils Percent Auto 83.4 % (42.0-72.0); Platelet Count* 167 K/uL (140-440); RDW Coefficient of Variation % 13.5 % (11.5-15.5); Red Blood Count 2.31 m/uL (4.00-5.20); White Blood Count* 13.29 K/uL (4.50-11.00)
[2024-09-29 06:50] LABS: Sodium* 138 mmol/L (135-149)
[2024-09-29 06:53] LABS: Creatinine* 0.8 mg/dL (0.5-1.5); Est. Creatinine Clearance* 31.69; Estimated Glomerular Filt Rate 74 ml/min
[2024-09-29 06:54] LABS: Blood Urea Nitrogen* 18 mg/dL (7-30)
[2024-09-29 07:41] LABS: Hemoglobin* 7.9 gm/dL (12.0-16.0); Slide Review Reflex No
[2024-09-29 08:02] VITALS: BP 117/43; PULSE 63; RESP 18; TEMP 37.1; O2SAT 96
[2024-09-29 08:03] VITALS: RESP 16; O2SAT 96
--- NOTE | 2024-09-29 08:04 | PM.ORPN ---
Subjective Subjective Time Seen by Provider: 07:30 Date Seen: 09/29/24 Principal diagnosis: Status post right hip replacement Interval history: Mellissa is comfortable this morning. She states she had to get up frequently throughout the night to use the restroom. Ambulating went well. She denies lightheadedness or dizziness. She will discharge to home today. Ortho Exam Narrative Exam Narrative: Alert and oriented x3. Patient is in no acute distress. Converses without labored breathing. Hearing is grossly intact. Ambulates with a walker. Examination of the right hip shows ecchymosis is present. The dressing is intact. Minimal soft tissue edema. No warmth or erythema or sign of infection. Good quad strength. CMS intact right lower extremity. Calves are soft and nontender. Minimal pretibial edema. Const Vital Signs, click to edit/add: Vital Signs - 24 hr 09/28/24 08:30 09/28/24 08:35 09/28/24 11:43 Temperature 97.2 F L Pulse Rate 53 L 43 L 58 L Pulse Rate [Pulse Oximeter] Respiratory Rate 16 16 16 Blood Pressure 151/51 H 135/51 L 116/55 L Blood Pressure [Left Arm] Pulse Oximetry 100 100 96 Oxygen Delivery Method Nasal Cannula Nasal Cannula Room Air Oxygen Flow Rate 3 3 09/28/24 11:50 09/28/24 11:55 09/28/24 12:00 Temperature 97.3 F L Pulse Rate 55 L 52 L 53 L Pulse Rate [Pulse Oximeter] Respiratory Rate 14 14 18 Blood Pressure 121/57 L 132/56 L 130/54 L Blood Pressure [Left Arm] Pulse Oximetry 95 96 97 Oxygen Delivery Method Room Air Room Air Room Air Oxygen Flow Rate 09/28/24 12:05 09/28/24 12:10 09/28/24 12:15 Temperature Pulse Rate 56 L 53 L 53 L Pulse Rate [Pulse Oximeter] Respiratory Rate 16 14 14 Blood Pressure 116/51 L 128/55 L 127/55 L Blood Pressure [Left Arm] Pulse Oximetry 95 97 97 Oxygen Delivery Method Room Air Room Air Room Air Oxygen Flow Rate 09/28/24 12:18 09/28/24 12:27 09/28/24 12:30 Temperature 97.3 F L Pulse Rate 51 L 49 L Pulse Rate [Pulse Oximeter] Respiratory Rate 14 16 16 Blood Pressure 124/51 L 110/41 L Blood Pressure [Left Arm] Pulse Oximetry 96 95 96 Oxygen Delivery Method Room Air Room Air Room Air Oxygen Flow Rate 09/28/24 12:30 09/28/24 12:45 09/28/24 13:00 Temperature 96.0 F L 96.3 F L Pulse Rate 46 L 46 L 45 L Pulse Rate [Pulse Oximeter] Respiratory Rate 16 16 16 Blood Pressure 119/46 L 119/47 L 118/47 L Blood Pressure [Left Arm] Pulse Oximetry 96 98 97 Oxygen Delivery Method Room Air Room Air Room Air Oxygen Flow Rate 09/28/24 13:15 09/28/24 13:30 09/28/24 14:00 Temperature 96.7 F L Pulse Rate 47 L 46 L 47 L Pulse Rate [Pulse Oximeter] Respiratory Rate 16 16 16 Blood Pressure 118/47 L 105/44 L 108/47 L Blood Pressure [Left Arm] Pulse Oximetry 96 95 96 Oxygen Delivery Method Room Air Room Air Room Air Oxygen Flow Rate 09/28/24 14:30 09/28/24 15:00 09/28/24 15:00 Temperature 97.0 F L Pulse Rate 45 L 48 L Pulse Rate [Pulse Oximeter] Respiratory Rate 16 16 16 Blood Pressure 107/61 110/45 L Blood Pressure [Left Arm] Pulse Oximetry 96 96 96 Oxygen Delivery Method Room Air Room Air Room Air Oxygen Flow Rate 09/28/24 16:00 09/28/24 17:02 09/28/24 17:57 Temperature 97.3 F L 98.2 F Pulse Rate 47 L 56 L 57 L Pulse Rate [Pulse Oximeter] Respiratory Rate 16 16 14 Blood Pressure 110/37 L 129/48 L 105/43 L Blood Pressure [Left Arm] Pulse Oximetry 95 97 100 Oxygen Delivery Method Room Air Room Air Room Air Oxygen Flow Rate 0 0 09/28/24 19:27 09/28/24 22:33 09/28/24 23:00 Temperature 97.1 F L Pulse Rate Pulse Rate [Pulse Oximeter] 62 62 Respiratory Rate 14 14 16 Blood Pressure Blood Pressure [Left Arm] 104/45 L Pulse Oximetry 98 97 Oxygen Delivery Method Room Air Room Air Oxygen Flow Rate 0 09/28/24 23:00 09/29/24 04:00 09/29/24 08:02 Temperature 97.9 F 98.7 F 98.8 F Pulse Rate Pulse Rate [Pulse Oximeter] 54 L 65 63 Respiratory Rate 16 16 18 Blood Pressure Blood Pressure [Left Arm] 118/51 L 105/41 L 117/43 L Pulse Oximetry 97 97 96 Oxygen Delivery Method Room Air Room Air Room Air Oxygen Flow Rate 0 09/29/24 08:03 Temperature Pulse Rate Pulse Rate [Pulse Oximeter] Respiratory Rate 16 Blood Pressure Blood Pressure [Left Arm] Pulse Oximetry 96 Oxygen Delivery Method Room Air Oxygen Flow Rate Assessment and Plan Assessment and plan (1) S/P total right hip arthroplasty: Problem details: - 09/28/24 Dr. Mahajan - routine post op cares - VTE prophylaxis with 5 days low dose Xarelto, then bid low dose aspirin Status: Acute Assessment and Plan: Plan for discharge is today, and when they meets discharge criteria. DVT prophylaxis upon discharge includes Xarelto 10mg daily for a total of 5 days, then Aspirin 81mg twice daily for 30 days. Remove dressing 1 week. Observe wound and phone Orthopedics with any questions or concerns Use Ice on operative hip unrestricted. Return to clinic in 7-10 days for a wound check Return to clinic in 6 weeks with surgeon Minimize narcotic use. Wean off and discontinue soon as possible. Activities as tolerated. No strenuous activity. Attend outpt PT
[2024-09-29] MEDS: SENNOSIDES 1 TAB TABLET 2 TAB PO (08:10)
[2024-09-29] MEDS: RIVAROXABAN 10 MG TABLET PO (08:11)
== END 2024-09-29 11:55 | disposition home or self-care (01) ==
LOC: OR 06:38 → MEDSURG 06:39
PROVIDERS: PCP Physician Assistant Medical; Visit Provider Orthopaedic Surgery
PROC: (CPT 27130; principal; 2024-09-28 09:15)
DX: M16.11 Unilateral primary osteoarthritis, right hip (principal); G89.18 Other acute postprocedural pain; E11.9 Type 2 diabetes mellitus without complications; R00.1 Bradycardia, unspecified; I10 Essential (primary) hypertension; F41.9 Anxiety disorder, unspecified; E03.9 Hypothyroidism, unspecified; E78.2 Mixed hyperlipidemia; G25.81 Restless legs syndrome
CPT/HCPCS: 27130; 01214; 36415; 64450; 73501; 76000; 76942; 82565; 82962; 84132; 84295; 84520; 85025; 97110; 97116; 97161; 97165; 97530; 97535; 99100; A9270; C1776; J0690; J1100; J2250; J2405; J2704; J2795; J3010; J7120

== ENCOUNTER 2024-11-22 11:15 | Outpatient (RCR) | payer MEDICARE, BC, SELFPAY ==
--- NOTE | 2024-09-21 15:01 | PT.OPEX ---
[facility] Eval PT [facility] Outpatient Eval Start: 09/21/24 09:46 Freq: Status: Active Protocol: Document 09/21/24 09:48 MRS (Rec: 09/21/24 11:00 MRS No Response) E-signed By Nisha Davidson DPT Physical Therapy Outpatient Evaluation Insurance Information Recert Due Date 12/20/24 Insurance Name [employer] Medical Diagnosis R DOUG on 09/28/24 Treating Diagnosis Pain in R Hip M25.551 Impaired Mobility Z74.9 Referring MD Mariano Mahajan MD Subjective Preferred Name Mellissa Subjective Mellissa reports having groin pain for ~1 year that radiates into lower leg. Mellissa reported having leg feels like it will give out but is able to catch herself, no falls. Mellissa needs to take 2 Tylenol at night to sleep but no pain medication during the day. Mellissa would like to get back to running around after her great grandchildren and play pickle ball again. PMH high blood pressure, DM II (diet and exercise controlled), allergies (sulfa, hay fever). Pain Comments current /10; at worst 8/10 Date of Surgery (If applicable) 09/28/24 Current Work Status Retired Precautions Treatment Precautions/Contraindications none Objective Range of Motion WNL; pain with R hip abduction Strength R hip grossly 4+/5; L hip 5/5; all other joints 5/5 bilaterally Sensation/Reflexes intact Functional Test Performed & Score LEFS= 63/80 Assessment Assessment/Impression Mellissa is pleasant and active 79 -year-old female who plans to have R DOUG on 09/28/24 for pain and weakness. Mellissa lives with her in [facility] home with 2 stairs to enter and laundry in basement. Mellissa has PMH significant for high blood pressure (unsure if it is diagnosed as HTN), DM, and allergies. Mellissa presented today for pre-operative evaluation. Mellissa demonstrates UE and LE ROM and strength that is WNL but has pain with right hip abduction. Mellissa would benefit from skilled PT treatment post-op to improve ROM, strength, balance, endurance, and functional mobility. Mellissa plans to stay 1 night in hospital and then discharge home with her . Mellissa has OP PT eval scheduled for 10/05/24. She would benefit from skilled PT treatment after surgery to increase strength, ROM, endurance, balance, and improve functional mobility while decreasing pain. Primary Functional Limitations pain, weakness, impaired functional mobility. Plan of Care Rehabilitation Potential Excellent Physical Therapy Goals STG's to be met in 2-4 weeks: 1.) Decrease pain to 6/10 at worst or less 2.) Progress independence with mobility by pt transition from using FWW to SPC for 200 feet or greater with modified independence. 3.) Pt will be able to ascend/ descend 12 stairs using railing and step to pattern with modified independence. LTG's to be met in 6-8 weeks: 1.) Pt will demonstrate 5/5 strength MMT in glut max & glut med to improve dynamic control with SLS activities and gait.? 2.) Decrease in pain to 4/10 at worst or less. 3.) Pt will be able to ambulate 250 feet without AD and modified independence. Treatment Plan/Direct Interventions Gait Training,Ice/Cold/ Vasopneumatic,Manual Therapy, Neuromuscular Re-ed, Therapeutic Activities, Therapeutic Exercises Frequency/Duration 1-2 times per week for 8 weeks Patient Will Be Discharged From Therapy Completion of LTG(s),Skills Plateau,Independent w/HEP, Independently Progressing Evaluation Billing Untimed Code Treatment Minutes 13 PT Eval No Charge No Complexity Low Certification Information Initial Certification Date 09/21/24 Ending Certification Date 12/20/24 Provider Signature Required Yes Provider Signature Shows Agreement With POC & Medical Necessity Physician NPI Number Write NPI# Here Physician Comment/Change : Physician Signature & Date Requested Please Sign/Date Here
== END 2025-03-22 23:59 | disposition home or self-care (01) ==
PROVIDERS: PCP Physician Assistant Medical; Visit Provider Orthopaedic Surgery
DX: Z47.1 Aftercare following joint replacement surgery (principal); M16.11 Unilateral primary osteoarthritis, right hip; Z96.641 Presence of right artificial hip joint; M25.551 Pain in right hip; Z51.89 Encounter for other specified aftercare
CPT/HCPCS: 97110; 97161; 97164; 97530; J2371; J2704